=== PATIENT | female | born 1960 | race Caucasian/White ===

== ENCOUNTER → 2017-01-09 | Outpatient (CLI) | payer MEDICARE ==
--- NOTE | 2017-01-10 09:14 | MM ---
Reason for exam: screening (asymptomatic). Last mammogram was performed 2 years ago. History: Patient is postmenopausal and is nulliparous. Physical Findings: A clinical breast exam by your physician is recommended on an annual basis and results should be correlated with mammographic findings. MG Screening Mammo w CAD Bilateral CC and MLO view(s) were taken. Prior study comparison: January 20, 2015, bilateral MG screening mammo w CAD. December 21, 2013, bilateral digital screening mammo w/CAD. December 26, 2012, bilateral digital screening mammo w/CAD. There are scattered fibroglandular densities. There is no discrete abnormality. ASSESSMENT: Negative, BI-RAD 1 RECOMMENDATION: Routine screening mammogram of both breasts in 1 year.
== END | disposition home or self-care (01) ==
LOC: RADMAMWWP 09:32
PROVIDERS: ATTEND Family Medicine
DX: Z12.31 Encounter for screening mammogram for malignant neoplasm of breast (principal)

== ENCOUNTER 2017-02-25 06:11 | Day surgery (SDC) | payer MEDICARE ==
[2017-02-21 14:17] VITALS: BMI 33.3
[~2017-02-25 06:11] MED LIST: LACTATED RINGERS 1,000 ML IV SCH
[2017-02-25] MEDS ORDERED: LACTATED RINGERS 1,000 ML IV ONE (07:09)
[2017-02-25 07:22] VITALS: TEMP 97.3
[2017-02-25 07:22] LABS: Glucose,Whole Blood 92 mg/dL (75-99)
[2017-02-25] MEDS ORDERED: PROPOFOL 10 MG/ML 20 ML VIAL IV ONE (07:41)
[2017-02-25] MEDS ORDERED: LIDOCAINE 1% INJ 10MG/ML (20 ML MDV) ONE (07:41)
--- NOTE | 2017-02-25 07:49 | P.GSHP ---
History of Present Illness H&P Date: 02/25/17 Chief Complaint: History of colonic polyps This a 57-year-old female who presents today for colonoscopy. Her last colonoscopy several years ago. She is found have benign adenomatous polyps. She presents today for colonoscopy. - Constitutional Constitutional: Reports as per HPI Past Medical History Past Medical History: Diabetes Mellitus, Eye Disorder, GERD/Reflux, Hyperlipidemia, Thyroid Disorder Additional Past Medical History / Comment(s): BLIND-RETINITIS PIGMENTOSA , MIGRAINES, LOW THYROID, HX OF HIATAL HERNIA W/ SURGERY., STATES SHE HAS A COUGH WHEN SHE EATS, DRINKS, TAKES A DEEP BREATH AND TALKS FOR A WHILE. History of Any Multi-Drug Resistant Organisms: None Reported Past Surgical History: Cholecystectomy, Hernia Repair Additional Past Surgical History / Comment(s): colonoscopy. left cataract removal., EGD , lap lety fundoplasty ., UMBILICAL HERNIA Past Anesthesia/Blood Transfusion Reactions: No Reported Reaction Past Psychological History: No Psychological Hx Reported Smoking Status: Never smoker Past Alcohol Use History: None Reported Past Drug Use History: None Reported - Past Family History Mother Family Medical History: No Reported History Medications and Allergies Home Medications Medication Instructions Recorded Confirmed Type Gemfibrozil [Lopid] 600 mg PO QAM 04/19/15 02/25/17 History Levothyroxine Sodium [Synthroid] 75 mcg PO QAM 04/19/15 02/25/17 History Linagliptin [Tradjenta] 5 mg PO W/SUPPER 04/19/15 02/25/17 History metFORMIN HCL [Glucophage] 500 mg PO BID-W/MEALS 04/19/15 02/25/17 History Vit A,C & E/Lutein/Minerals 1 each PO DAILY 09/02/15 02/25/17 History [Ocuvite with Lutein Tablet] glipiZIDE XL [Glucotrol XL] 10 mg PO AC-SUPPER 09/14/15 02/25/17 History Acetaminophen [Tylenol] 650 mg PO DIRECTED PRN 09/20/15 02/25/17 History Cholecalciferol [Vitamin D3] 2,000 unit PO DAILY 06/26/16 02/25/17 History Ibuprofen [Advil] 200 mg PO Q8HR PRN 06/26/16 02/25/17 History Allergies Allergy/AdvReac Type Severity Reaction Status Date / Time strawberry Allergy Itching Verified 02/25/17 07:17 Surgical - Exam Vital Signs Temp Pulse Resp BP Pulse Ox 97.3 F L 86 16 143/82 97 02/25/17 07:21 02/25/17 07:21 02/25/17 07:21 02/25/17 07:21 02/25/17 07:21 - General well developed, no distress - Eyes PERRL - ENT normal pinna - Neck no masses - Respiratory normal expansion - Cardiovascular Rhythm: regular - Abdomen Abdomen: soft, non tender Assessment and Plan Plan: History of colonic polyps. We'll perform colonoscopy.
--- NOTE | 2017-02-25 08:08 | P.OP ---
Date of Procedure: 02/25/17 Preoperative Diagnosis: Colonic polyps Postoperative Diagnosis: Normal colonoscopy Procedure(s) Performed: Colonoscopy Anesthesia: MAC Surgeon: Cali Monsalve Pathology: none sent Condition: stable Disposition: PACU Description of Procedure: PROCEDURE: The patient was placed on the endoscopy table in the lateral position. Digital rectal examination was performed which revealed no abnormalities. Flexible colonoscope was then placed in the patient's anus and passed throughout the entire colon. The ileocecal valve was visualized. The cecum, ascending, transverse, descending and sigmoid colon were normal. The rectum was normal as well. There were no masses, polyps or diverticula noted in the entire colon. SUMMARY OF FINDINGS: Normal colonoscopy.
[2017-02-25 08:43] VITALS: BP 125/78; PULSE 72; RESP 18
== END 2017-02-25 08:48 | disposition home or self-care (01) ==
LOC: ORWHC2ENDO 06:11
PROVIDERS: ATTEND Surgery
DX: Z12.11 Encounter for screening for malignant neoplasm of colon (principal); Z86.010 Personal history of colon polyps; E11.9 Type 2 diabetes mellitus without complications; K21.9 Gastro-esophageal reflux disease without esophagitis; E78.5 Hyperlipidemia, unspecified; E07.9 Disorder of thyroid, unspecified; Z79.84 Long term (current) use of oral hypoglycemic drugs; Z79.1 Long term (current) use of non-steroidal anti-inflammatories (NSAID); Z79.899 Other long term (current) drug therapy
CPT/HCPCS: J2001; J2704; G0105

== ENCOUNTER → 2019-03-06 | Outpatient (CLI) | payer MEDICARE ==
--- NOTE | 2019-03-10 13:45 | MM ---
Reason for exam: screening (asymptomatic). Last mammogram was performed 2 years and 2 months ago. History: Patient is postmenopausal and is nulliparous. Physical Findings: A clinical breast exam by your physician is recommended on an annual basis and results should be correlated with mammographic findings. MG Screening Mammo w CAD Bilateral CC and MLO view(s) were taken. Prior study comparison: January 09, 2017, bilateral MG screening mammo w CAD. January 20, 2015, bilateral MG screening mammo w CAD. There are scattered fibroglandular densities. No significant changes when compared with prior studies. ASSESSMENT: Benign, BI-RAD 2 RECOMMENDATION: Routine screening mammogram of both breasts in 1 year.
== END | disposition home or self-care (01) ==
LOC: RADMAMWWP 08:29
PROVIDERS: ATTEND Family Medicine
DX: Z12.31 Encounter for screening mammogram for malignant neoplasm of breast (principal)
CPT/HCPCS: 77067

== ENCOUNTER 2020-07-28 13:09 | Observation (INO) | payer MEDICARE ==
[2020-07-28 15:45] LABS: Basophils # (A) 0.1 k/uL (0-0.2); Basophils % (A) 1 %; Eosinophils # (A) 0.2 k/uL (0-0.7); Eosinophils % (A) 2 %; HGB 13.8 gm/dL (11.4-16.0); Hypochromasia Slight; Lymphocytes # (A) 2.1 k/uL (1.0-4.8); Lymphocytes % (A) 17 %; MCH 28.6 pg (25.0-35.0); MCHC 31.3 g/dL (31.0-37.0); MCV 91.2 fL (80.0-100.0); Mean Platelet Volume 7.4; Monocytes # (A) 0.5 k/uL (0-1.0); Monocytes % (A) 4 %; Neutrophils # (A) 9.6 k/uL (1.3-7.7); Neutrophils % (A) 77 %; Platelet Count 361 k/uL (150-450); RBC 4.82 m/uL (3.80-5.40); RDW 14.6 % (11.5-15.5); WBC 12.5 k/uL (3.8-10.6)
[2020-07-28 15:55] LABS: ALT 22 U/L (4-34); AST 25 U/L (14-36); African American GFR (CKD) 64 (>60 ml/min/1.73 sqM); Albumin 4.6 g/dL (3.5-5.0); Albumin/Globulin Ratio 1.7; Alkaline Phosphatase 85 U/L (38-126); Blood Urea Nitrogen 25 mg/dL (7-17); Calcium 9.7 mg/dL (8.4-10.2); Carbon Dioxide 25 mmol/L (22-30); Chloride 106 mmol/L (98-107); Globulin 2.7 g/dL; Glucose 111 mg/dL (74-99); Non-African American GFR(CKD) 56 (>60 ml/min/1.73 sqM); Potassium 4.4 mmol/L (3.5-5.1); Total Bilirubin 0.4 mg/dL (0.2-1.3); Total Protein 7.3 g/dL (6.3-8.2)
--- NOTE | 2020-07-28 16:01 | XR ---
EXAMINATION TYPE: XR KUB DATE OF EXAM: 07/28/2020 COMPARISON: 08/30/2015 INDICATION: Hydronephrosis TECHNIQUE: Single view abdomen upright view FINDINGS: There is a normal bowel gas pattern. No free air is evident. No suspicious differential air-fluid lev els are present. Psoas margins are normal. No organomegaly is present. No suspicious calcifications are evident. Scoliosis within the lumbar spine. IMPRESSION: 1. No acute abdominal changes
[2020-07-28 16:02] LABS: Anion Gap 10 mmol/L; Sodium 141 mmol/L (137-145)
[2020-07-28] MEDS ORDERED: KETOROLAC 15 MG/ML 1 ML VIAL IVP PRN (16:53)
[2020-07-28] MEDS ORDERED: HYDROcodone/APAP 7.5-325MG 1 EACH TAB PO PRN (16:53)
[2020-07-28] MEDS ORDERED: ACETAMINOPHEN TAB 325 MG TAB PO PRN (16:54)
[2020-07-28 17:14] LABS: Glucose,Whole Blood 87 mg/dL (75-99)
--- NOTE | 2020-07-28 17:20 | P.HPIM ---
History of Present Illness Patient is a pleasant 60-year-old the female was sent in from PCPs office where she was complaining of right upper quadrant abdominal patient patient has not certain of the abdomen showed mildly dilated common bile duct of 6 mm. Patient pain has been going on for about a month not associated with food and patient is unable to characterize the pain very well. Patient states her pain is severe not associated nausea vomiting not associated with food patient has right lower: D pain tenderness in that area. Patient feels like there is a lump in the patient had a cholecystectomy in the past. Patient in an echo source flank tend erness patient denied any dysuria. I did obtain a CBC and CMP which is only significant for elevated white blood cell count of 12,500 mild elevated creatinine of 1.2, urine analysis is pending. Ultrasound of the abdomen that was done as an outpatient showed hydronephrosis on the right side patient and nausea vomiting diarrhea, no fever no chills symptoms has been going on for about one and half month Review of Systems REVIEW OF SYSTEMS: CONSTITUTIONAL: No fever, no malaise, no fatigue. HEENT: No recent visual problems or hearing problems. Denied any sore throat. CARDIOVASCULAR: No chest pain, orthopnea, PND, no palpitations, no syncope. PULMONARY: No shortness of breath, no cough, no hemoptysis. GASTROINTESTINAL: No diarrhea, no nausea, no vomiting, NEUROLOGICAL: No headaches, no weakness, no numbness. HEMATOLOGICAL: Denies any bleeding or petechiae. GENITOURINARY: Denies any burning micturition, frequency, or urgency. MUSCULOSKELETAL/RHEUMATOLOGICAL: Denies any joint pain, swelling, or any muscle pain. ENDOCRINE: Denies any polyuria or polydipsia. The rest of the 14-point review of systems is negative. Past Medical History Past Medical History: Diabetes Mellitus, Eye Disorder, GERD/Reflux, Hyper lipidemia, Thyroid Disorder Additional Past Medical History / Comment(s): Blindness/retinitis pigmentosa, NIDDM type II, dysphagia/"lazy esophagus", hypothyroid, UTI History of Any Multi-Drug Resistant Organisms: None Reported Past Surgical History: Cholecystectomy, Hernia Repair Additional Past Surgical History / Comment(s): Laser eye surgeries L eye/cataract removal with lens implants, EGD, colonoscopies/benign polyp, bronchoscopy, Lap lety fundoplication, incisional hernia repair. Past Anesthesia/Blood Transfusion Reactions: No Reported Reaction Smoking Status: Never smoker - Past Family History Father History Unknown: Yes Mother Family Medical History: Cancer, Fibromyalgia, Osteoarthritis (OA) Additional Family Medical History / Comment(s): Stomach cancer recently diagnosed, scars in lungs. Medications and Allergies Home Medications Medication Instructions Recorded Confirmed Type Levothyroxine Sodium [Synthroid] 75 mcg PO QAM 04/19/15 07/28/20 History Linagliptin [Tradjenta] 5 mg PO W/SUPPER 04/19/15 07/28/20 History gemfibroziL [Lopid] 600 mg PO BID-W/MEALS 04/19/15 07/28/20 History metFORMIN HCL [Glucophage] 1,000 mg PO BID-W/MEALS 04/19/15 07/28/20 History Empagliflozin [Jardiance] 25 mg PO W/SUPPER 07/28/20 07/28/20 History glipiZIDE XL [Glucotrol XL] 5 mg PO W/SUPPER 07/28/20 07/28/20 History Allergies Allergy/AdvReac Type Severity Reaction Status Date / Time strawberry Allergy Itching Verified 07/28/20 15:00 Physical Exam Vitals: Vital Signs Temp Pulse Resp BP Pulse Ox 07/28/20 14:17 98.7 F 97 18 147/90 95 Intake and Output 07/28/20 07/28/20 07/28/20 06:59 14:59 22:59 Other: Weight 81.647 kg PHYSICAL EXAMINATION: GENERAL: The patient is alert and oriented x3, not in any acute distress. Well d eveloped, well nourished. HEENT: Pupils are round and equally reacting to light. EOMI. No scleral icterus. No conjunctival pallor. Normocephalic, atraumatic. No pharyngeal erythema. No thyromegaly. CARDIOVASCULAR: S1 and S2 present. No murmurs, rubs, or gallops. PULMONARY: Chest is clear to auscultation, no wheezing or crackles. ABDOMEN: Soft, patient has tenderness in the right upper quadrant and lower rib cage area there is some but redness in the under the breast area probably not the source of tenderness. The tenderness appears to be deep no CVA tenderness MUSCULOSKELETAL: No joint swelling or deformity. EXTREMITIES: No cyanosis, clubbing, or pedal edema. NEUROLOGICAL: Gross neurological examination did not reveal any focal deficits. SKIN: No rashes. Results CBC & Chem 7: 07/28/20 15:31 07/28/20 15:31 Labs: Abnormal Lab Results - Last 24 Hours (Table) 07/28/20 07/28/20 Range/Units 15:31 15:31 WBC 12.5 H (3.8-10.6) k/uL Neutrophils # 9.6 H (1.3-7.7) k/uL BUN 25 H (7-17) mg/dL Creatinine 1.10 H (0.52-1.04) mg/dL Glucose 111 H (74-99) mg/dL Thrombosis Risk Factor Assmnt - Choose All That Apply Any of the Below Risk Factors Present?: Yes Each Factor Represents 1 point: Age 41-60 years, Obesity (BMI >25) Other Risk Factors: No Other congenital or acquired thrombophilia - If yes, enter type in comment: No Thrombosis Risk Factor Assessment Total Risk Factor Score: 2 Thrombosis Risk Factor Assessment Level: Low Risk Assessment and Plan Plan: -Right upper quadrant abdominal pain, right lower rib cage pain: Workup is in progress abdominal CAT scan with contrast will be obtained, and also tender rib x-rays. Patient's symptomatology is not consistent with pyelonephritis R any urinary tract pathology. Although hydronephrosis was seen on the ultrasound. Patient doesn't have any UTI symptoms although urine analysis will be obtained. As of now patient is not septic will not require any antibiotics. 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
[2020-07-28] MEDS ORDERED: LINAGLIPTIN 5 MG TABLET PO SCH (17:30)
[2020-07-28] MEDS: SODIUM CHLORIDE 0.9% 1,000 ML IV SCH (17:57)
[2020-07-28] MEDS: IOPAMIDOL CONTRAST (ORAL USE) VIAL PO PRN ×2 (19:01→19:59)
[2020-07-28 20:00] LABS: Glucose,Whole Blood 146 mg/dL (75-99)
[2020-07-28 21:15] VITALS: RESP 16
--- NOTE | 2020-07-28 21:38 | XR ---
PROCEDURE: XR RIBS BILAT W PA CHEST XRAY - 9 VIEWS DATE AND TIME: 07/28/2020 5:44 PM CLINICAL INDICATION: PHH; R/O rib fracture TECHNIQUE: Department protocol COMPARISON: None FINDINGS: There is no pneumothorax or pleural effusion. There is no rib fracture or malalignment. Rem ainder of the skeletal structures are intact. The extra skeletal structures are unremarkable for acut e findings. IMPRESSION: No acute radiographic process.
[2020-07-28] MEDS: NYSTATIN 100,000 UNIT/GM POWD 15 GM TOPICAL SCH (21:41)
--- NOTE | 2020-07-28 21:55 | CT ---
EXAMINATION TYPE: CT abdomen pelvis w con DATE OF EXAM: 07/28/2020 COMPARISON: None HISTORY: RUQ pain, Rt hydronephrosis CT DLP: 1259.9 mGycm Automated exposure control for dose reduction was used. TECHNIQUE: Helical acquisition of images was performed from the lung bases through the pelvis. CONTRAST: Performed with Oral Contrast and with IV Contrast, patient injected with 80 mL of Isovue 30 0. FINDINGS: LUNG BASES: No acute findings. Coronary calcifications detected. LIVER/GB: No significant abnormality is appreciated. PANCREAS: No significant abnormality is seen. SPLEEN: No significant abnormality is seen. ADRENALS: No significant abnormality is seen. KIDNEYS, URETERS, AND URINARY BLADDER: There are large bilateral symmetric parapelvic cysts; the bila teral upper collecting systems course unimpeded through these large bilateral parapelvic cysts. PERITONEAL CAVITY: No pneumoperitoneum or peritoneal fluid. RETROPERITONEAL ADENOPATHY: None visualized REPRODUCTIVE ORGANS: No significant abnormality is seen URINARY BLADDER: No significant abnormality is seen. PELVIC ADENOPATHY: None visualized. OSSEOUS STRUCTURES: No significant abnormality is seen. BOWEL: No significant abnormality is seen. OTHER: No acute vascular findings. IMPRESSION: 1. NEGATIVE FOR HYDRONEPHROSIS OR OTHER ACUTE PROCESS. 2. Incidental: Coronary Calcifications
[2020-07-29 04:25] LABS: HGB 12.7 gm/dL (11.4-16.0); Hypochromasia Slight; MCH 27.3 pg (25.0-35.0); MCV 88.2 fL (80.0-100.0); Mean Platelet Volume 7.4; Platelet Count 322 k/uL (150-450); RBC 4.65 m/uL (3.80-5.40); RDW 14.6 % (11.5-15.5); WBC 10.5 k/uL (3.8-10.6)
[2020-07-29 04:33] LABS: Appearance,Urine Cloudy (Clear); Bacteria,Urine Moderate /hpf; Bilirubin,Urine Negative (Negative); Blood,Urine Negative (Negative); Color,Urine Light Yellow; Glucose,Urine (UA) 4+ (Negative); Hyaline Casts,Urine 1 /lpf (0-2); Ketones,Urine Trace (Negative); Leukocyte Esterase,Urine Large (Negative); Mucus,Urine Rare /hpf; Nitrite,Urine Negative (Negative); PH, Urine 5.5 (5.0-8.0); Protein,Urine Negative (Negative); RBC,Urine 1 /hpf (0-5); Specific Gravity,Urine 1.015 (1.001-1.035); Squamous Epithelial Cell,Urine 1 /hpf (0-4); Urobilinogen,Urine <2.0 mg/dL (<2.0); WBC,Urine 22 /hpf (0-5)
[2020-07-29] MEDS: SODIUM CHLORIDE 0.9% 1,000 ML IV SCH (06:28)
[2020-07-29] MEDS ORDERED: LEVOTHYROXINE 75 MCG TAB PO SCH (06:30)
[2020-07-29 07:30] LABS: Glucose,Whole Blood 91 mg/dL (75-99)
[2020-07-29] MEDS ORDERED: ENOXAPARIN 40 MG/0.4 ML SYRINGE SQ SCH (09:00)
[2020-07-29] MEDS ORDERED: FENOFIBRATE 160 MG TAB PO SCH (09:00)
[2020-07-29] MEDS: NYSTATIN 100,000 UNIT/GM POWD 15 GM TOPICAL SCH (09:28)
[2020-07-29 10:14] LABS: African American GFR (CKD) 110.7 (60.0-200.0); BUN/Creat Ratio 32.86 Ratio (12.00-20.00); Calcium 9.2 mg/dL (8.7-10.3); Non-African American GFR(CKD) 95.5 (60.0-200.0); Potassium 4.4 mmol/L (3.5-5.5)
--- NOTE | 2020-07-29 10:42 | P.GSCN ---
History of Present Illness Consult date: 07/29/20 History of present illness: CHIEF COMPLAINT: Abdominal pain HISTORY OF PRESENT ILLNESS: This is a 60-year-old female with a known past medical history of diabetes, GERD hyperlipidemia, hypothyroidism, cholecystectomy, Lety fundoplication and hernia repair. Patient presents from to the ER from her PCP office due to right upper quadrant abdominal pain. She's had this pain for about a month. Patient reports the pain not associated with food. She denies a nausea or vomiting. She had a computed tomography scan of the abdomen and pelvis showing bilateral peripelvic cyst no evidence of any acute process. Surgery was consulted in regards to her right upper quadrant abdominal pain. Patient denies any fever, chills or sweats. PAST MEDICAL HISTORY: See list. PAST SURGICAL HISTORY: See list. MEDICATIONS: See list. ALLERGIES: See list. SOCIAL HISTORY: No illicit drug use. REVIEW OF SYSTEMS: CONSTITUTIONAL: Denies fever or chills. HEENT: Denies blurred vision, vision changes, or eye pain. Denies hemoptysis CARDIOVASCULAR: Denies chest pain or pressure. RESPIRATORY: No shortness of breath. GASTROINTESTINAL: See HPI for pertinent findings HEMATOLOGIC: Denies bleeding disorders. GENITOURINARY: Denies any blood in urine or increased urinary frequency. SKIN: Denies pruitis. Denies rash. PHYSICAL EXAM: VITAL SIGNS: Reviewed GENERAL: Well-developed in no acute distress. HEENT: No sclera icterus. Extraocular movements grossly intact. Moist buccal mucosa. Head is atraumatic, normocephalic. No nasal drainage. ABDOMEN: Soft. Nondistended tenderness with palpation of the right upper quadrant NEUROLOGIC: Alert and oriented. Cranial nerves II through XII grossly intact. LABORATORY DATA: WBC 12.5 down to 10.5 he will implement 12.7 AST 25 ALT 22 IMAGING: Computed tomography scan abdomen and pelvis showing bilateral peripelvic cyst no evidence of any acute process ASSESSMENT: 1. Right upper quadrant abdominal pain 2. History of cholecystectomy 3. History of Ltey fundoplication 4. History of incisional hernia repair PLAN: -Recommend EGD outpatient with Dr. Monsalve Thank you for this consultation Physician Dyeing Machine Tender note has been reviewed by physician. Signing provider agrees with the documented findings, assessment, and plan of care. Past Medical History Past Medical History: Diabetes Mellitus, Eye Disorder, GERD/Reflux, Hyperlipidemia, Thyroid Disorder Additional Past Medical History / Comment(s): Blindness/retinitis pigmentosa, NIDDM type II, dysphagia/"lazy esophagus", hypothyroid, UTI History of Any Multi-Drug Resistant Organisms: None Reported Past Surgical History: Cholecystectomy, Hernia Repair Additional Past Surgical History / Comment(s): Laser eye surgeries L eye/cataract removal with lens implants, EGD, colonoscopies/benign polyp, bronchoscopy, Lap lety fundoplication, incisional hernia repair. Past Anesthesia/Blood Transfusion Reactions: No Reported Reaction Smoking Status: Never smoker - Past Family History Father History Unknown: Yes Mother Family Medical History: Cancer, Fibromyalgia, Osteoarthritis (OA) Additional Family Medical History / Comment(s): Stomach cancer recently diagnosed, scars in lungs. Medications and Allergies Home Medications Medication Instructions Recorded Confirmed Type Levothyroxine Sodium [Synthroid] 75 mcg PO QAM 04/19/15 07/28/20 History Linagliptin [Tradjenta] 5 mg PO W/SUPPER 04/19/15 07/28/20 History gemfibroziL [Lopid] 600 mg PO BID-W/MEALS 04/19/15 07/28/20 History metFORMIN HCL [Glucophage] 1,000 mg PO BID-W/MEALS 04/19/15 07/28/20 History Empagliflozin [Jardiance] 25 mg PO W/SUPPER 07/28/20 07/28/20 History glipiZIDE XL [Glucotrol XL] 5 mg PO W/SUPPER 07/28/20 07/28/20 History Allergies Allergy/AdvReac Type Severity Reaction Status Date / Time strawberry Allergy Itching Verified 07/28/20 15:00 Surgical - Exam Vital Signs Temp Pulse Resp BP Pulse Ox 98.7 F 97 18 147/90 95 07/28/20 14:17 07/28/20 14:17 07/28/20 14:17 07/28/20 14:17 07/28/20 14:17 Results - Labs 07/29/20 03:54 07/29/20 03:54 Abnormal Lab Results - Last 24 Hours (Table) 07/28/20 07/28/20 07/28/20 Range/Units 15:31 15:31 19:05 WBC 12.5 H (3.8-10.6) k/uL Neutrophils # 9.6 H (1.3-7.7) k/uL BUN 25 H (7-17) mg/dL Creatinine 1.10 H (0.52-1.04) mg/dL BUN/Creatinine Ratio (12.00-20.00) Ratio Glucose 111 H (74-99) mg/dL POC Glucose (mg/dL) (75-99) mg/dL Urine Appearance Cloudy H (Clear) Urine Glucose (UA) 4+ H (Negative) Urine Ketones Trace H (Negative) Ur Leukocyte Esterase Large H (Negative) Urine WBC 22 H (0-5) /hpf Urine Bacteria Moderate H (None) /hpf Urine Mucus Rare H (None) /hpf 07/28/20 07/29/20 Range/Units 19:59 03:54 WBC (3.8-10.6) k/uL Neutrophils # (1.3-7.7) k/uL BUN (7-17) mg/dL Creatinine (0.52-1.04) mg/dL BUN/Creatinine Ratio 32.86 H (12.00-20.00) Ratio Glucose (74-99) mg/dL POC Glucose (mg/dL) 146 H (75-99) mg/dL Urine Appearance (Clear) Urine Glucose (UA) (Negative) Urine Ketones (Negative) Ur Leukocyte Esterase (Negative) Urine WBC (0-5) /hpf Urine Bacteria (None) /hpf Urine Mucus (None) /hpf Diabetes panel 07/28/20 07/29/20 Range/Units 15:31 03:54 Sodium 141 140 (137-145) mmol/L Potassium 4.4 4.4 (3.5-5.1) mmol/L Chloride 106 107 (98-107) mmol/L Carbon Dioxide 25 24.0 (22-30) mmol/L BUN 25 H 23.0 (7-17) mg/dL Creatinine 1.10 H 0.7 (0.52-1.04) mg/dL Glucose 111 H 94 (74-99) mg/dL Calcium 9.7 9.2 (8.4-10.2) mg/dL AST 25 (14-36) U/L ALT 22 (4-34) U/L Alkaline Phosphatase 85 (38-126) U/L Total Protein 7.3 (6.3-8.2) g/dL Albumin 4.6 (3.5-5.0) g/dL Calcium panel 07/28/20 07/29/20 Range/Units 15:31 03:54 Calcium 9.7 9.2 (8.4-10.2) mg/dL Albumin 4.6 (3.5-5.0) g/dL Pituitary panel 07/28/20 07/29/20 Range/Units 15:31 03:54 Sodium 141 140 (137-145) mmol/L Potassium 4.4 4.4 (3.5-5.1) mmol/L Chloride 106 107 (98-107) mmol/L Carbon Dioxide 25 24.0 (22-30) mmol/L BUN 25 H 23.0 (7-17) mg/dL Creatinine 1.10 H 0.7 (0.52-1.04) mg/dL Glucose 111 H 94 (74-99) mg/dL Calcium 9.7 9.2 (8.4-10.2) mg/dL Adrenal panel 07/28/20 07/29/20 Range/Units 15:31 03:54 Sodium 141 140 (137-145) mmol/L Potassium 4.4 4.4 (3.5-5.1) mmol/L Chloride 106 107 (98-107) mmol/L Carbon Dioxide 25 24.0 (22-30) mmol/L BUN 25 H 23.0 (7-17) mg/dL Creatinine 1.10 H 0.7 (0.52-1.04) mg/dL Glucose 111 H 94 (74-99) mg/dL Calcium 9.7 9.2 (8.4-10.2) mg/dL Total Bilirubin 0.4 (0.2-1.3) mg/dL AST 25 (14-36) U/L ALT 22 (4-34) U/L Alkaline Phosphatase 85 (38-126) U/L Total Protein 7.3 (6.3-8.2) g/dL Albumin 4.6 (3.5-5.0) g/dL
[2020-07-29 11:52] LABS: Glucose,Whole Blood 93 mg/dL (75-99)
[2020-07-29 12:53] VITALS: BP 145/87; PULSE 74; TEMP 98.7
--- NOTE | 2020-07-29 15:00 | P.DS ---
Providers Date of admission: 07/28/20 13:43 Attending physician: Marce Sahu Consults: 07/28/20 16:50 Consult Physician Routine Consulting Provider: Cali Monsalve Consult Reason/Comments: Abd pain RUQ Do you want consulting provider notified?: Yes Primary care physician: [facility] Course: Patient is a pleasant 60-year-old the female was sent in from PCPs office where she was complaining of right upper quadrant abdominal patient patient has not certain of the abdomen showed mildly dilated common bile duct of 6 mm. Patient pain has been going on for about a month not associated with food and patient is unable to characterize the pain very well. Patient states her pain is severe not associated nausea vomiting not associated with food patient has right lower: D pain tenderness in that area. Patient feels like there is a lump in the patient had a cholecystectomy in the past. Patient in an echo source flank tenderness patient denied any dysuria. I did obtain a CBC and CMP which is only significant for elevated white blood cell count of 12,500 mild elevated creatinine of 1.2, urine analysis is pending. Ultrasound of the abdomen that was done as an outpatient showed hydronephrosis on the right side patient and nausea vomiting diarrhea, no fever no chills symptoms has been going on for about one and half month 07/29/[address] of the abdomen which did not show any significant abnormality no hydronephrosis no believe E tract pathology. Patient also had a rib x-ray which did not show any rib fractures. Patient was a valid by general surgery recommending outpatient upper GI endoscopy. Etiology of the still not clear patient will be discharged on the tramadol and [place] and patient was asked to take either or. PHYSICAL EXAMINATION: GENERAL: The patient is alert and oriented x3, not in any acute distress. Well developed, well nourished. HEENT: Pupils are round and equally reacting to light. EOMI. No scleral icterus. No conjunctival pallor. Normocephalic, atraumatic. No pharyngeal erythema. No thyromegaly. CARDIOVASCULAR: S1 and S2 present. No murmurs, rubs, or gallops. PULMONARY: Chest is clear to auscultation, no wheezing or crackles. ABDOMEN: Soft, patient has tenderness in the right upper quadrant and lower rib cage area there is some but redness in the under the breast area probably not the source of tenderness. The tenderness appears to be deep no CVA tenderness MUSCULOSKELETAL: No joint swelling or deformity. EXTREMITIES: No cyanosis, clubbing, or pedal edema. NEUROLOGICAL: Gross neurological examination did not reveal any focal deficits. SKIN: No rashes. Assessment and Plan Plan: -Right upper quadrant abdominal pain, right lower rib cage pain: Workup and management as mentioned above. Patient he is negative patient doesn't have any clinical signs or symptoms of UTI patient will not require any antibiotics patient had these symptoms for about one and half month. Patient will follow general surgery as an outpatient for upper GI endoscopy. 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 Plan - Discharge Summary Discharge Rx Participant: No New Discharge Prescriptions: New HYDROcodone/APAP 7.5-325MG [[place] 7.5-325] 1 tab PO Q4H PRN #20 tab PRN Reason: Pain traMADol HCL [Ultram] 50 mg PO Q4HR PRN 3 Days #18 tab PRN Reason: Pain Nystatin 100,000 Unit/gm Powd [Mycostatin Powder] 1 applic TOPICAL BID #60 applic Continue Linagliptin [Tradjenta] 5 mg PO W/SUPPER metFORMIN HCL [Glucophage] 1,000 mg PO BID-W/MEALS Levothyroxine Sodium [Synthroid] 75 mcg PO QAM gemfibroziL [Lopid] 600 mg PO BID-W/MEALS glipiZIDE XL [Glucotrol XL] 5 mg PO W/SUPPER Empagliflozin [Jardiance] 25 mg PO W/SUPPER Discharge Medication List Levothyroxine Sodium [Synthroid] 75 mcg PO QAM 04/19/15 [History] Linagliptin [Tradjenta] 5 mg PO W/SUPPER 04/19/15 [History] gemfibroziL [Lopid] 600 mg PO BID-W/MEALS 04/19/15 [History] metFORMIN HCL [Glucophage] 1,000 mg PO BID-W/MEALS 04/19/15 [History] Empagliflozin [Jardiance] 25 mg PO W/SUPPER 07/28/20 [History] glipiZIDE XL [Glucotrol XL] 5 mg PO W/SUPPER 07/28/20 [History] HYDROcodone/APAP 7.5-325MG [[place] 7.5-325] 1 tab PO Q4H PRN #20 tab 07/29/20 [Rx] Nystatin 100,000 Unit/gm Powd [Mycostatin Powder] 1 applic TOPICAL BID #60 applic 07/29/20 [Rx] traMADol HCL [Ultram] 50 mg PO Q4HR PRN 3 Days #18 tab 07/29/20 [Rx] Follow up Appointment(s)/Referral(s): Cali Monsalve MD [STAFF PHYSICIAN] - 08/09/20 2:00 pm Patient Instructions/Handouts: Acute Abdominal Pain (DC) Discharge Disposition: HOME SELF-CARE
== END 2020-07-29 15:54 | disposition home or self-care (01) ==
LOC: 6NMEDSUR 13:43
PROVIDERS: ADMIT Internal Medicine; ATTEND Internal Medicine
DX: R10.11 Right upper quadrant pain (principal); D72.829 Elevated white blood cell count, unspecified; E11.9 Type 2 diabetes mellitus without complications; E78.5 Hyperlipidemia, unspecified; E03.9 Hypothyroidism, unspecified; H54.7 Unspecified visual loss; H35.52 Pigmentary retinal dystrophy; K21.9 Gastro-esophageal reflux disease without esophagitis; K83.8 Other specified diseases of biliary tract; R79.82 Elevated C-reactive protein (CRP); R07.81 Pleurodynia; R19.7 Diarrhea, unspecified; R11.2 Nausea with vomiting, unspecified; E66.9 Obesity, unspecified; Z68.31 Body mass index [BMI] 31.0-31.9, adult; K75.9 Inflammatory liver disease, unspecified; Z90.49 Acquired absence of other specified parts of digestive tract; Z79.890 Hormone replacement therapy; Z91.018 Allergy to other foods; Z87.440 Personal history of urinary (tract) infections; Z86.010 Personal history of colon polyps; Z98.890 Other specified postprocedural states; Z98.42 Cataract extraction status, left eye; Z96.1 Presence of intraocular lens; Z80.0 Family history of malignant neoplasm of digestive organs; Z82.69 Family history of other diseases of the musculoskeletal system and connective tissue; Z82.61 Family history of arthritis
CPT/HCPCS: 96372; 80053; 80048; 85025; 85027; 81001; 71111; 74018; 74177; G0379; G0378 ×2; J1650; Q9967

== ENCOUNTER 2020-08-18 07:26 | Day surgery (SDC) | payer MEDICARE ==
[2020-08-17 09:38] VITALS: BMI 31.8
[2020-08-18 08:31] VITALS: RESP 16; TEMP 97.4
[2020-08-18] MEDS ORDERED: LIDOCAINE 1% (10MG/ML) FOR IV START INTRADERMA ONE (08:31)
[2020-08-18 08:46] LABS: Glucose,Whole Blood 99 mg/dL (75-99)
[2020-08-18] MEDS ORDERED: PROPOFOL 10 MG/ML 20 ML VIAL IV ONE (08:51)
[2020-08-18] MEDS ORDERED: LIDOCAINE 1% INJ 10MG/ML (20 ML MDV) ONE (08:51)
--- NOTE | 2020-08-18 08:52 | P.GSHP ---
History of Present Illness H&P Date: 08/18/20 Chief Complaint: GERD This a 60-year-old female with history of GERD and epigastric pain. She presents today for EGD. Past Medical History Past Medical History: Diabetes Mellitus, Eye Disorder, GERD/Reflux, Hyperlipidemia, Thyroid Disorder Additional Past Medical History / Comment(s): Blindness/retinitis pigmentosa, NIDDM type II, dysphagia/"lazy esophagus", hypothyroid, ABDOMINAL PAIN , MIGRAINE HEADACHE History of Any Multi-Drug Resistant Organisms: None Reported Past Surgical History: Cholecystectomy, Hernia Repair Additional Past Surgical History / Comment(s): Laser eye surgeries L eye/cataract removal with lens implants, EGD, colonoscopies/benign polyp, bronchoscopy, Lap lety fundoplication, incisional hernia repair. Past Anesthesia/Blood Transfusion Reactions: No Reported Reaction Smoking Status: Never smoker - Past Family History Father History Unknown: Yes Mother Family Medical History: Cancer, Fibromyalgia, Osteoarthritis (OA) Additional Family Medical History / Comment(s): Stomach cancer , scars in lungs. Medications and Allergies Home Medications Medication Instructions Recorded Confirmed Type Levothyroxine Sodium [Synthroid] 75 mcg PO QAM 04/19/15 08/18/20 History Linagliptin [Tradjenta] 5 mg PO W/SUPPER 04/19/15 08/18/20 History gemfibroziL [Lopid] 600 mg PO BID-W/MEALS 04/19/15 08/18/20 History metFORMIN HCL [Glucophage] 1,000 mg PO BID-W/MEALS 04/19/15 08/18/20 History Empagliflozin [Jardiance] 25 mg PO W/SUPPER 07/28/20 08/18/20 History glipiZIDE XL [Glucotrol XL] 5 mg PO W/SUPPER 07/28/20 08/18/20 History Cholecalciferol [Vitamin D3 (25 1,000 unit PO DAILY 08/17/20 08/18/20 History Mcg = 1000 Iu)] Multivit-Min/FA/Lycopen/Lutein 1 each PO DAILY 08/17/20 08/18/20 History [Centrum Silver Tablet] Nystatin 100,000 Unit/gm Powd 1 applic TOPICAL BID PRN 08/17/20 08/18/20 History [Mycostatin Powder] Vits A,C,E/Lutein/Minerals 1 each PO DAILY 08/17/20 08/18/20 History [Ocuvite with Lutein Tablet] Allergies Allergy/AdvReac Type Severity Reaction Status Date / Time strawberry Allergy Itching Verified 08/17/20 09:03 Surgical - Exam Vital Signs Temp Pulse Resp BP Pulse Ox 97.4 F L 85 16 156/93 99 08/18/20 08:25 08/18/20 08:25 08/18/20 08:25 08/18/20 08:25 08/18/20 08:25 - General well developed, well nourished, no distress - Eyes PERRL - ENT normal pinna - Neck no masses - Respiratory normal expansion - Cardiovascular Rhythm: regular - Abdomen Abdomen: soft, non tender Assessment and Plan Assessment: GERD. We'll perform EGD.
--- NOTE | 2020-08-18 09:00 | P.OP ---
Date of Procedure: 08/18/20 Preoperative Diagnosis: Epigastric pain Postoperative Diagnosis: Duodenitis Procedure(s) Performed: EGD Anesthesia: MAC Surgeon: Cali Monsalve Pathology: other (Duodenitis) Condition: stable Disposition: PACU Description of Procedure: The patient's placed on the endoscopy table in the lateral position. She received IV sedation. The gastroscope placed oropharynx passed in the esophagus and into the stomach. Scope was then placed through the pylorus. The first and second portion of the duodenum was examined. The duodenum was inflamed. A biopsies performed. Scope was then brought back the antrum appeared normal. Scope was retroflexed the remainder of the stomach appeared normal. The GE elgin ction was at 40 cm. The distal esophagus was normal. The proximal esophagus appeared normal. Scope withdrawn for patient.
[2020-08-18 09:21] LABS: Glucose,Whole Blood 102 mg/dL (75-99)
[2020-08-18 09:22] VITALS: BP 139/76; PULSE 72
== END 2020-08-18 09:46 | disposition home or self-care (01) ==
LOC: ORWHC2ENDO 07:26
PROVIDERS: ATTEND Surgery
DX: K29.80 Duodenitis without bleeding (principal); K21.9 Gastro-esophageal reflux disease without esophagitis; E11.9 Type 2 diabetes mellitus without complications; E78.5 Hyperlipidemia, unspecified; E03.9 Hypothyroidism, unspecified; H35.52 Pigmentary retinal dystrophy; G43.909 Migraine, unspecified, not intractable, without status migrainosus; Z98.890 Other specified postprocedural states; Z90.49 Acquired absence of other specified parts of digestive tract; Z98.42 Cataract extraction status, left eye; Z96.1 Presence of intraocular lens; Z79.84 Long term (current) use of oral hypoglycemic drugs; Z80.0 Family history of malignant neoplasm of digestive organs; Z82.61 Family history of arthritis; Z79.890 Hormone replacement therapy; Z79.899 Other long term (current) drug therapy; Z91.018 Allergy to other foods
CPT/HCPCS: 88305; 43239; J2001; J2704

== ENCOUNTER → 2020-10-18 | Outpatient (CLI) | payer MEDICARE ==
--- NOTE | 2020-10-18 17:25 | ECHOF ---
Referral Reason:R01.1 murmur MEASUREMENTS -------- HEIGHT: 172.7 cm WEIGHT: 83.5 kg BP: IVSd: 0.8 cm (0.6 - 1.1) LVIDd: 4.0 cm (3.9 - 5.3) LVPWd: 0.8 cm (0.6 - 1.1) IVSs: 1.4 cm LVIDs: 3.2 cm LVPWs: 1.2 cm LA Diam: 4.3 cm (2.7 - 3.8) LAESV Index (A-L): 27.79 ml/m Ao Diam: 3.3 cm (2.0 - 3.7) AV Cusp: 2.3 cm (1.5 - 2.6) EPSS: 0.7 cm MV E Ramiro: 0.64 m/s MV DecT: 248 ms MV A Ramiro: 0.90 m/s MV E/A Ratio: 0.71 RAP: 5.00 mmHg RVSP: 14.84 mmHg MV EF SLOPE: 109.95 mm/s (70 - 150) MV EXCURSION: 17.01 mm (> 18.000) FINDINGS -------- Sinus rhythm. This was a technically good study. LV size, wall thickness and systolic function are normal, with an EF greater than 55%. The left santiago tricular size is normal. The right ventricle is normal in size. LA is midly dilated 29-33ml/m2. The right atrial size is normal. There is mild aortic valve sclerosis. There is no evidence of aortic regurgitation. Mild mitral annular calcification present. Mild mitral regurgitation is present. Mild tricuspid regurgitation present. Right ventricular systolic pressure is normal at < 35 mmHg. There is no pulmonic regurgitation present. The aortic root size is normal. There is no pericardial effusion. CONCLUSIONS -------- 1. Sinus rhythm. 2. LV size, wall thickness and systolic function are normal, with an EF greater than 55%. 3. The left ventricular size is normal. 4. The right ventricle is normal in size. 5. LA is midly dilated 29-33ml/m2. 6. The right atrial size is normal. 7. There is mild aortic valve sclerosis. 8. Mild mitral annular calcification present. 9. Mild mitral regurgitation is present. 10. Mild tricuspid regurgitation present. 11. There is no pulmonic regurgitation present. 12. The aortic root size is normal. 13. There is no pericardial effusion. COUNTER CONTROL OPERATOR: Maureen Tang RDCS
== END | disposition home or self-care (01) ==
LOC: RADECHMAIN 13:09
PROVIDERS: ATTEND Family Medicine
DX: I08.3 Combined rheumatic disorders of mitral, aortic and tricuspid valves (principal)
CPT/HCPCS: 93306